=== PATIENT | female | born 2000 | race Caucasian/White ===

== ENCOUNTER 2023-06-25 22:15 | Inpatient (IN) | payer OTHER ==
[2023-06-25] MEDS: ELECTROLYTE-148 SOLN 1,000 ML IV SCH (23:00)
[2023-06-25] MEDS ORDERED: AMPICILLIN - 2 GM in SODIUM CHLORIDE 100 ML IVPB ONE (23:00)
[2023-06-25] MEDS ORDERED: BUTORPHANOL TARTRATE 1 MG/ML VIAL IVPB ONE (23:30)
[2023-06-25] MEDS ORDERED: PROMETHAZINE HCL 25 MG/1 ML VIAL IVPB ONE (23:30)
[2023-06-25] MEDS ORDERED: BUTORPHANOL TARTRATE 2 MG/ML VIAL ONE (23:33)
[2023-06-25] MEDS ORDERED: PROMETHAZINE HCL 25 MG/1 ML VIAL ONE (23:33)
[2023-06-25 23:42] LABS: INR 0.93 (0.83-1.09); PROTHROMBIN TIME (PATIENT) 10.8 SEC (9.7-13.0)
[2023-06-25 23:43] LABS: BASO % 0.2 % (0-2.0); EOS % 0.4 % (0-4.5); HEMATOCRIT 34.2 % (32.4-45.2); HEMOGLOBIN 11.4 GM/dL (10.7-15.3); LYMPH % 16.6 % (8-40); MCH 28.1 pg (25.7-33.7); MCHC 33.3 g/dl (32.0-36.0); MEAN CELL VOLUME 84.2 fl (80-96); MEAN PLT VOLUME 7.8 fl (7.5-11.1); MONO % 4.3 % (3.8-10.2); NEUT % 78.5 % (42.8-82.8); PLATELET COUNT 230 10^3/uL (134-434); RBC 4.06 M/mm3 (3.60-5.2); RDW 15.3 % (11.6-15.6); WHITE BLOOD COUNT 9.5 K/mm3 (4.0-10.0)
[2023-06-25 23:44] LABS: ACTIVATED PTT 26.2 SECONDS (25.2-36.5)
[2023-06-25 23:55] LABS: COCAINE, UR NEGATIVE (NEGATIVE); METHADONE, UR NEGATIVE (NEGATIVE); OPIATES, URI NEGATIVE (NEGATIVE); URINE BARBITURATES NEGATIVE (NEGATIVE); URINE BENZODIAZEPINES NEGATIVE (NEGATIVE)
[2023-06-26] LABS: PHENCYCLIDINE,URINE NEGATIVE (NEGATIVE); URINE AMPHETAMINES NEGATIVE (NEGATIVE)
[2023-06-26] MEDS ORDERED: LIDOCAINE HCL 1% PRESERVATIVE FREE - 30ML VIAL ONE (00:02)
[2023-06-26] MEDS ORDERED: OXYTOCIN 20 UNITS in 0.9% NS 20 UNIT/1,000 ML INFUS.BAG IV ONE (00:03)
[2023-06-26 00:05] LABS: POTASSIUM 4.2 mmol/L (3.5-5.1)
[2023-06-26 00:06] LABS: CALCIUM 8.5 mg/dL (8.5-10.1)
[2023-06-26 00:07] LABS: BLOOD UREA NITROGEN 7.3 mg/dL (7-18)
[2023-06-26 00:10] LABS: CREATININE 0.5 mg/dL (0.55-1.3)
[2023-06-26 01:15] VITALS: BMI 29.0
[2023-06-26] MEDS ORDERED: AMPICILLIN SODIUM 1 GM VIAL ONE (02:08)
[2023-06-26] MEDS: ELECTROLYTE-148 SOLN 1,000 ML IV SCH (02:30)
[2023-06-26] MEDS ORDERED: FENTANYL/BUPIVACAINE/NS/PF - PCEA - 50 ML DISP.SYRIN EP ONE (02:38)
[2023-06-26] MEDS ORDERED: AMPICILLIN - 1 GM in SODIUM CHLORIDE 100 ML IVPB SCH (03:00)
[2023-06-26] MEDS ORDERED: OXYTOCIN 30 UNITS in 0.9% NS 30 UNIT/500 ML INFUS.BAG IVPB ONE (03:04)
[2023-06-26] MEDS ORDERED: OXYTOCIN 30 UNITS in 0.9% NS 30 UNIT/500 ML INFUS.BAG IVPB SCH (03:15)
[2023-06-26] MEDS ORDERED: BISACODYL 10 MG SUPP.RECT RC PRN (03:55)
[2023-06-26] MEDS ORDERED: BENZOCAINE 28 GM HEMORRHOIDAL OINTMENT TP PRN (03:55)
[2023-06-26] MEDS ORDERED: BENZOCAINE 20% 57 GM BOTTLE TP PRN (03:55)
[2023-06-26] MEDS ORDERED: WITCH HAZEL 50% (TUCKS) 40 PAD/JAR PAD TP PRN (03:55)
[2023-06-26] MEDS ORDERED: METHYLERGONOVINE MALEATE 0.2 MG/1 ML AMP IM PRN (03:55)
[2023-06-26] MEDS: ACETAMINOPHEN 325 MG TABLET (FP) PO PRN ×4 (04:00→21:04)
[2023-06-26] MEDS ORDERED: OXYTOCIN 20 UNITS in 0.9% NS 20 UNIT/1,000 ML INFUS.BAG IV SCH (04:00)
[2023-06-26 04:07] LABS: CORD BASE EXCESS -4.9 mmol/L (0-2); CORD HCO3 19.5 mmHg (20-29); CORD PCO2 34.9 mmHg (30-78); CORD pH 7.364 (7.14-7.44)
[2023-06-26 04:13] LABS: CORD BASE EXCESS -2.4 mmol/L (0-2); CORD HCO3 24.1 mmHg (20-29); CORD PCO2 47.5 mmHg (30-78); CORD pH 7.323 (7.14-7.44)
[2023-06-26 06:10] VITALS: RESP 18
[2023-06-26] MEDS ORDERED: FLU VACCINE (FLULAVAL) PF 60 MCG/0.5 ML SYRINGE 2023-2024 IM ONE (10:00)
[2023-06-26] MEDS ORDERED: DIPHTH,PERTUSS(ACELL),TET 0.5 ML DISP.SYRIN IM ONE (10:00)
[2023-06-27] MEDS: ACETAMINOPHEN 325 MG TABLET (FP) PO PRN ×2 (02:12→10:46)
[2023-06-27] MEDS: oxyCODONE HCL 5 MG TABLET PO PRN (07:20)
[2023-06-27 09:14] LABS: BASO % 0.5 % (0-2.0); EOS % 0.5 % (0-4.5); HEMATOCRIT 28.4 % (32.4-45.2); HEMOGLOBIN 9.5 GM/dL (10.7-15.3); LYMPH % 16.6 % (8-40); MCH 28.1 pg (25.7-33.7); MCHC 33.3 g/dl (32.0-36.0); MEAN CELL VOLUME 84.5 fl (80-96); MEAN PLT VOLUME 7.4 fl (7.5-11.1); MONO % 4.4 % (3.8-10.2); PLATELET COUNT 201 10^3/uL (134-434); RBC 3.36 M/mm3 (3.60-5.2); RDW 15.4 % (11.6-15.6); WHITE BLOOD COUNT 10.7 K/mm3 (4.0-10.0)
[2023-06-27] MEDS ORDERED: SENNOSIDES/DOCUSATE COMBO (SENNA PLUS) TABLET (UD) PO PRN (22:00)
[2023-06-28] MEDS: oxyCODONE HCL 5 MG TABLET PO PRN (00:02)
[2023-06-28] MEDS: ACETAMINOPHEN 325 MG TABLET (FP) PO PRN (07:29)
[2023-06-28 08:13] VITALS: BP 116/74; PULSE 78; TEMP 98.4
== END 2023-06-28 14:05 | disposition home or self-care (01) | DRG 560 ==
LOC: JLDR 22:15 → J3W 06-26 05:38
PROVIDERS: ADMIT Obstetrics & Gynecology; ATTEND Obstetrics & Gynecology
DX: O99.824 Streptococcus B carrier state complicating childbirth (principal); Z37.0 Single live birth; Z3A.39 39 weeks gestation of pregnancy
CPT/HCPCS: 36415; 36600; 80048; 80307; 82803; 85025; 85610; 85730; 86780; 86850; 86900; 86901; 90686; 90715